=== PATIENT | female | born 1960 | race African-American/Black ===

== ENCOUNTER 2020-09-16 10:48 | Emergency (ER) | payer MEDICARE, MEDICAID ==
[~2020-09-16] VITALS: Ht 167.6 cm; Wt 75.0 kg
[2020-09-16 10:50] VITALS: BP 185/77; Ht 167.6 cm; Wt 75.0 kg
[2020-09-16] MEDS ORDERED: PROAIR HFA8.5 G1 (11:05)
[2020-09-16] MEDS ORDERED: NORVASC5 MG (11:05)
[2020-09-16] MEDS ORDERED: ABILIFY10 MG (11:06)
[2020-09-16] MEDS ORDERED: BUSPAR10 MG (11:07)
[2020-09-16] MEDS ORDERED: DULCOLAX5 MG (11:07)
[2020-09-16] MEDS ORDERED: BUPROPION XL300 MG (11:07)
[2020-09-16] MEDS ORDERED: VOLTAREN100 GM (11:08)
[2020-09-16] MEDS ORDERED: DEPAKOTE SPRIN125 MG (11:08)
[2020-09-16] MEDS ORDERED: PEPCID AC20 MG (11:09)
[2020-09-16] MEDS ORDERED: ESTRACE1 MG (11:09)
[2020-09-16] MEDS ORDERED: EPIPEN JR0.15 MG/01 (11:09)
[2020-09-16] MEDS ORDERED: LISINOPRIL20 MG (11:10)
[2020-09-16] MEDS ORDERED: NAPROXEN SODIU220 M1 (11:11)
[2020-09-16] MEDS ORDERED: NAPROSYN500 MG (11:11)
[2020-09-16] MEDS ORDERED: ZYPREXA5 MG (11:12)
[2020-09-16] MEDS ORDERED: OMEPRAZOLE20 M1 (11:12)
[2020-09-16] MEDS ORDERED: ZOFRAN4 MG (11:13)
[2020-09-16] MEDS ORDERED: PREMARIN0.625 MG (11:13)
[2020-09-16] MEDS ORDERED: KONSYL PSYLLIU3.4 GM (11:13)
[2020-09-16] MEDS ORDERED: ZOLOFT100 MG PO (11:14)
[2020-09-16] MEDS ORDERED: SPIRIVA18 MCG (11:14)
[2020-09-16] MEDS ORDERED: TRAZODONE HCL300 MG (11:14)
[2020-09-16] MEDS ORDERED: METHOCARBAMOL500 MG PO (11:40)
[2020-09-16] MEDS ORDERED: MEDROL DOSE PACK4 MG PO (11:40)
== END 2020-09-16 12:24 | disposition home or self-care (01) ==
LOC: D.ER 10:48
DX: M25.552 Pain in left hip (principal); M54.5 Low back pain